=== PATIENT | female | born 1950 | race Caucasian/White ===

== ENCOUNTER 2017-08-28 22:08 | Emergency (ER) | payer MEDICARE, MEDICAID | END 2017-08-29 02:58 | disposition home or self-care (01) | LOC: MADERS 22:08 | DX: L73.9 Follicular disorder, unspecified (principal); I25.10 Atherosclerotic heart disease of native coronary artery without angina pectoris; I25.2 Old myocardial infarction; E11.9 Type 2 diabetes mellitus without complications; E78.5 Hyperlipidemia, unspecified; I10 Essential (primary) hypertension | CPT/HCPCS: 99282 ==

== ENCOUNTER 2024-01-23 14:50 | Emergency (ER) | payer MEDICARE, MEDICAID ==
[2024-01-23] MEDS ORDERED: Lidocaine 1% w/Epinephrine 1:100K 20 ML VIAL ONE (15:12)
[2024-01-23] MEDS ORDERED: Bacitracin 1 PK ONE (15:12)
[2024-01-23] MEDS ORDERED: Boostrix 0.5 ML (Tdap) VIAL (>/=7 yrs of age) ONE (15:12)
== END 2024-01-23 16:00 | disposition home or self-care (01) ==
LOC: MADERS 14:50
DX: S81.812A Laceration without foreign body, left lower leg, initial encounter (principal); E11.9 Type 2 diabetes mellitus without complications; E03.9 Hypothyroidism, unspecified; E78.00 Pure hypercholesterolemia, unspecified; I10 Essential (primary) hypertension; Z23 Encounter for immunization; Z79.4 Long term (current) use of insulin
CPT/HCPCS: 12002; 90471; 90715

== ENCOUNTER 2024-01-28 20:46 | Emergency (ER) | payer MEDICARE, MEDICAID | END 2024-01-28 21:10 | disposition home or self-care (01) | LOC: MADERS 20:46 | DX: S81.812D Laceration without foreign body, left lower leg, subsequent encounter (principal); R21 Rash and other nonspecific skin eruption; I10 Essential (primary) hypertension; E11.9 Type 2 diabetes mellitus without complications; E78.5 Hyperlipidemia, unspecified; I25.10 Atherosclerotic heart disease of native coronary artery without angina pectoris; I25.2 Old myocardial infarction; E78.00 Pure hypercholesterolemia, unspecified; Z95.5 Presence of coronary angioplasty implant and graft; Z87.891 Personal history of nicotine dependence; Z75.1 Person awaiting admission to adequate facility elsewhere; Z79.899 Other long term (current) drug therapy; Z79.4 Long term (current) use of insulin | CPT/HCPCS: 99282 ==